=== PATIENT | male | born 1970 | race Caucasian/White ===

== ENCOUNTER 2018-04-07 22:59 | Emergency (ER) | payer SELFPAY, OTHER | END 2018-04-08 01:07 | disposition left against medical advice (07) | LOC: E/R 22:59 | DX: Z53.21 Procedure and treatment not carried out due to patient leaving prior to being seen by health care provider (principal) | CPT/HCPCS: 93005 ==

== ENCOUNTER 2018-08-04 15:54 | Emergency (ER) | payer OTHER ==
[2018-08-04] MEDS: BENZONATATE 100 MG CAP PO (16:49)
== END 2018-08-04 17:34 | disposition home or self-care (01) ==
LOC: FTE 15:54
DX: R05 Cough (principal); I10 Essential (primary) hypertension; F17.210 Nicotine dependence, cigarettes, uncomplicated; Z79.82 Long term (current) use of aspirin
CPT/HCPCS: 71045; 93005; 99284-25

== ENCOUNTER 2018-12-12 21:21 | Emergency (ER) | payer OTHER | END 2018-12-12 23:39 | disposition home or self-care (01) | LOC: FTE 21:21 | DX: H66.003 Acute suppurative otitis media without spontaneous rupture of ear drum, bilateral (principal); I10 Essential (primary) hypertension; F17.210 Nicotine dependence, cigarettes, uncomplicated; Z79.82 Long term (current) use of aspirin | CPT/HCPCS: 99283; Z7502 ==